=== PATIENT | male | born 1985 | race Two or more races ===

== ENCOUNTER 2017-12-28 19:47 | Emergency (ER) | payer MEDICAID ==
[~2017-12-28] VITALS: Ht 177.8 cm; Wt 74.8 kg
--- NOTE | 2017-12-28 20:09 | NUR ---
BB SELF C/O SHARP GENERALIZED BODY PAIN X 1 YR. WORSE TODAY PER PT. PT STS " I DONT FEEL NORMAL AND FEEL DIZZY X3 WKS ". PT AAOX3, VSS. DENIES CP, SOB, N/V/D @ THIS TIME. DR. YOUSSEF @ BS FOR EVAL.
[2017-12-28] MEDS ORDERED: ACETAMINOPHEN ES 500 MG TABLET PO ONE (20:30)
[2017-12-28] MEDS ORDERED: IBUPROFEN 400 MG TABLET PO ONE (20:30)
[2017-12-28 20:35] LABS: BASOPHILS % (AUTO) 0.7 % (0.0-2.0); EOSINOPHILS % (AUTO) 1.4 % (0.0-6.0); HEMATOCRIT 43 % (39-51); HEMOGLOBIN 14.3 g/dL (13.5-17.5); LYMPHOCYTES # (AUTO) 1.6 /CMM (0.8-4.8); LYMPHOCYTES % (AUTO) 28.3 % (20.0-44.0); MEAN CORPUSCULAR HEMOGLOBIN 29 PG (26.0-33.0); MEAN CORPUSCULAR HGB CONC 34 g/dl (31.0-36.0); MEAN CORPUSCULAR VOLUME 87 fL (80-96); MONOCYTES # (AUTO) 0.4 /CMM (0.1-1.30); MONOCYTES % (AUTO) 7.6 % (2.0-12.0); NEUTROPHILS # (AUTO) 3.5 /CMM (1.8-8.9); PLATELET COUNT (AUTO) 173 /CMM (150-450); RDW COEFFICIENT OF VARIATION 11.3 (11.5-15.0); RED BLOOD CELL COUNT(AUTO) 4.91 MIL/uL (4.5-6.0); WHITE BLOOD COUNT (AUTO) 5.6 K/uL (4.3-11.0)
[2017-12-28] MEDS ORDERED: ACETAMINOPHEN ES 500 MG TABLET ONE (20:36)
[2017-12-28] MEDS ORDERED: IBUPROFEN 400 MG TABLET ONE (20:37)
[2017-12-28 20:44] LABS: CALCIUM, SERUM 8.7 mg/dL (8.5-10.1); POTASSIUM 3.4 mmol/L (3.5-5.1)
[2017-12-28 20:50] LABS: BILIRUBIN,DIRECT 0.1 mg/dL (0.0-0.2); BILIRUBIN,TOTAL 0.7 mg/dL (0.2-1.0); TOTAL PROTEIN, SERUM 7.4 g/dL (6.4-8.2)
[2017-12-28 22:20] VITALS: BP 130/78
== END 2017-12-28 22:22 | disposition home or self-care (01) ==
LOC: ER 19:50
DX: R51 Headache (principal); R42 Dizziness and giddiness; R11.10 Vomiting, unspecified; R19.7 Diarrhea, unspecified
CPT/HCPCS: 36415; 80048-TC; 80076-TC; 85025-TC; A4606; Z7610